=== PATIENT | female | born 1965 | race Hispanic/Latino ===

== ENCOUNTER → 2020-06-16 | Outpatient (CLI) | payer OTHER | END | disposition home or self-care (01) | LOC: RAH 13:28 | PROVIDERS: ATTEND Internal Medicine Cardiovascular Disease | DX: Z13.6 Encounter for screening for cardiovascular disorders (principal) | CPT/HCPCS: 75571 ==

== ENCOUNTER → 2021-10-10 | Emergency (ER) | payer OTHER ==
[~2021-10-10] VITALS: Ht 162.6 cm; Wt 79.4 kg
[~2021-10-10] MED LIST: 0.9% NACL 500ML IV.SOLN 500 ML IV SCH; CYCL10TA16 PO; KETOROLAC 30MG VIAL (30MG/ML) IVP ONE; NAPR-1180 PO; PROMETHAZINE HCL 25 MG/ML 1ML AMPULE IM ONE
[2021-10-10 19:20] VITALS: BP 156/94
== END | disposition home or self-care (01) ==
LOC: EDH 19:17
DX: G44.209 Tension-type headache, unspecified, not intractable (principal); R03.0 Elevated blood-pressure reading, without diagnosis of hypertension; Z79.1 Long term (current) use of non-steroidal anti-inflammatories (NSAID)